=== PATIENT | female | born 1980 | race Native Hawaiian/Other Pacific Islander ===

== ENCOUNTER 2018-05-01 08:00 | Outpatient (CLI) | payer MEDICAID, OTHER ==
[2018-05-01 12:57] LABS: BASOPHILS % (AUTO) 0.3 %; EOSINOPHILS % (AUTO) 0.6 %; LYMPHOCYTES # (AUTO) 1.9 10^3/uL (1.5-3.5); LYMPHOCYTES % (AUTO) 26.1 %; MEAN CORPUSCULAR HEMOGLOBIN 32.8 pg (27.0-31.0); MEAN CORPUSCULAR HGB CONC 32.9 g/dL (32.0-36.0); MEAN CORPUSCULAR VOLUME 99.6 fL (81.0-99.0); MEAN PLATELET VOLUME 9.6 fL (7.9-10.8); MONOCYTES # (AUTO) 0.5 10^3/uL (0.0-1.0); NEUTROPHILS # (AUTO) 4.9 10^3/uL (1.5-6.6); PLT - PLATELET COUNT 221 10^3/uL (130-450); RED BLOOD COUNT 3.97 10^6/uL (4.20-5.40); RED CELL DISTRIBUTION WIDTH 13.4 % (12.0-15.0); WHITE BLOOD COUNT 7.4 x10^3/uL (4.8-10.8)
[2018-05-01 13:18] LABS: HB2 TOTAL 13.6 g/dL; HEMOGLOBIN A1C 0.44 g/dL; HEMOGLOBIN A1C % 5.1 % (4.6-6.2)
[2018-05-01 13:28] LABS: ALBUMIN 3.6 g/dL (3.2-5.5); ALKALINE PHOSPHATASE 67 IU/L (42-121); ALT ALANINE AMINOTRANSFERASE 16 IU/L (10-60); AST ASPARTATE AMINOTRANSFERASE 18 IU/L (10-42); BILIRUBIN,TOTAL 0.5 mg/dL (0.2-1.0); BUN - BLOOD UREA NITROGEN 8 mg/dL (6-20); CALCIUM 8.8 mg/dL (8.5-10.3); CARBON DIOXIDE - CO2 26 mmol/L (21-32); CHLORIDE 106 mmol/L (101-111); CHOL/HDL RATIO 2.9 (<4.4); CHOLESTEROL 143 mg/dL; CREATININE 0.7 mg/dL (0.4-1.0); GFR - MDRD 95 (>89); GLUCOSE 95 mg/dL (70-100); HDL CHOLESTEROL 50 mg/dL; LDL CHOLESTEROL,CALCULATED 73 mg/dL; LDL/HDL RATIO 1.5 (<4.4); SODIUM 138 mmol/L (135-145); TOTAL PROTEIN 7.3 g/dL (6.7-8.2); VLDL CHOLESTEROL 20 mg/dL
[2018-05-01 13:32] LABS: THYROID STIMULATING HORMONE 3.64 uIU/mL (0.34-5.60)
== END 2018-05-01 08:01 ==
LOC: LAB.WCP 08:00
PROVIDERS: ATTEND Physician Assistant
DX: Z00.00 Encounter for general adult medical examination without abnormal findings (principal); R53.83 Other fatigue
CPT/HCPCS: 36415; 80053; 80061; 82306; 82607; 83036; 83721; 84443; 85025

== ENCOUNTER 2018-08-21 11:30 | Emergency (ER) | payer MEDICAID ==
[2018-08-21] MEDS ORDERED: MAG HYDROX/AL HYDROX/SIMETH 30 ML UDC PO STA (13:39)
[2018-08-21] MEDS ORDERED: LIDOCAINE VISCOUS 2% 15 ML UDC MM STA (13:39)
--- NOTE | 2018-08-21 13:41 | ED Physician Documentation ---
PD HPI ABD PAIN - Stated complaint Stated Complaint: UPPER AB PX/VOMITING - Chief complaint Chief Complaint: Abd Pain - History obtained from History obtained from: Patient - History of Present Illness Timing - onset: Today (38-year-old woman with gradual onset and now severe left upper quadrant and left abdominal pain today associated with with vomiting. No changes in bowel movements or diarrhea. She is never had this before. She has had a history of a section but no other abdominal surgeries.) Review of Systems Ten Systems: 10 systems reviewed and negative Constitutional: denies: Fever, Chills Throat: denies: Dental pain / toothache, Sore throat Cardiac: denies: Chest pain / pressure, Palpitations Respiratory: denies: Dyspnea, Cough PD PAST MEDICAL HISTORY - Present Medications Home Medications: Ambulatory Orders Medication Instructions Recorded Confirmed Ciprofloxacin HCl [Cipro] 500 mg PO BID #14 tablet 08/21/18 Ibuprofen [Motrin] 800 mg PO Q8H PRN #30 tablet 08/21/18 Metronidazole [Flagyl] 500 mg PO BID #14 tablet 08/21/18 - Allergies Allergies/Adverse Reactions: Allergies Allergy/AdvReac Type Severity Reaction Status Date / Time No Known Drug Allergies Allergy Verified 02/12/15 06:16 - Social History Smoking Status: Never smoker PD ED PE NORMAL - Vitals Vital signs reviewed: Yes - General General: Alert and oriented X 3, Other (She appears uncomfortable) - HEENT HEENT: Atraumatic, PERRL, EOMI - Neck Neck: Supple, no meningeal sign, No bony TTP - Cardiac Cardiac: RRR, No murmur - Respiratory Respiratory: No respiratory distress, Clear bilaterally - Abdomen Abdomen: Normal bowel sounds, Soft, Other (Mild left upper quadrant and epigastric and left-sided abdominal tenderness without surgical signs) - Back Back: No CVA TTP, No spinal TTP - Derm Derm: Normal color, Warm and dry - Extremities Extremities: No deformity, No tenderness to palpate - Neuro Neuro: Alert and oriented X 3, Normal speech - Psych Psych: Normal mood, Normal affect Results - Vitals Vitals: Vital Signs - 24 hr 08/21/18 08/21/18 11:44 16:15 Temperature 36.7 C Heart Rate 68 51 L Respiratory 20 18 Rate Blood Pressure 118/71 111/83 H O2 Saturation 100 95 Oxygen O2 Source Room air - Labs Labs: Laboratory Tests 08/21/18 08/21/18 08/21/18 12:58 14:35 14:35 WBC RBC Hgb Hct MCV MCH MCHC RDW Plt Count MPV Neut # (Auto) Lymph # (Auto) [place] # (Auto) Eos # (Auto) Baso # (Auto) Absolute Nucleated RBC Nucleated RBC % Sodium 135 Potassium 4.0 Chloride 102 Carbon Dioxide 22 Anion Gap 11.0 BUN 10 Creatinine 0.5 Estimated GFR (MDRD) 140 Glucose 118 H Calcium 9.4 Total Bilirubin 0.8 AST 22 ALT 19 Alkaline Phosphatase 81 Total Protein 7.7 Albumin 4.2 Globulin 3.5 Albumin/Globulin Ratio 1.2 Lipase 23 Urine Color YELLOW Urine Clarity CLEAR Urine pH 8.5 H Ur Specific [place] 1.020 1.020 Urine Protein NEGATIVE Urine Glucose (UA) NEGATIVE Urine Ketones >=80 H Urine Occult Blood TRACE-LYSE Urine Nitrite NEGATIVE Urine Bilirubin NEGATIVE Urine Urobilinogen 0.2 (NORMAL) Ur Leukocyte Esterase NEGATIVE Ur Microscopic Review NOT INDICATED Urine Culture Comments NOT INDICATED Urine HCG, Qual NEGATIVE 08/21/18 14:57 WBC 17.0 H RBC 4.25 Hgb 13.7 Hct 41.6 MCV 98.0 MCH 32.2 H MCHC 32.9 RDW 13.3 Plt Count 260 MPV 8.6 Neut # (Auto) 15.4 H Lymph # (Auto) 0.9 L [place] # (Auto) 0.6 Eos # (Auto) 0.0 Baso # (Auto) 0.1 Absolute Nucleated RBC 0.00 Nucleated RBC % 0.0 Sodium Potassium Chloride Carbon Dioxide Anion Gap BUN Creatinine Estimated GFR (MDRD) Glucose Calcium Total Bilirubin AST ALT Alkaline Phosphatase Total Protein Albumin Globulin Albumin/Globulin Ratio Lipase Urine Color Urine Clarity Urine pH Ur Specific [place] Urine Protein Urine Glucose (UA) Urine Ketones Urine Occult Blood Urine Nitrite Urine Bilirubin Urine Urobilinogen Ur Leukocyte Esterase Ur Microscopic Review Urine Culture Comments Urine HCG, Qual PD MEDICAL DECISION MAKING - ED course ED course: 38-year-old woman with epigastric and left upper quadrant abdominal pain most consistent with gastritis but had minimal to no relief with a GI cocktail. And given the white count to CT was done, verbal report from Dr. Gauthier showing potential mild left-sided colitis and which is treated with Cipro and Flagyl. Departure - Departure Disposition: 01 Home, Self Care Clinical Impression: Abdominal pain, Colitis Condition: Good Record reviewed to determine appropriate education?: Yes Instructions: ED Abdominal Pain Unkn Cause Prescriptions: Ciprofloxacin HCl [Cipro] 500 mg PO BID #14 tablet Ibuprofen [Motrin] 800 mg PO Q8H PRN #30 tablet PRN Reason: PAIN &/OR FEVER Metronidazole [Flagyl] 500 mg PO BID #14 tablet Comments: Call your doctor to arrange a follow-up appointment, make the next available appointment. In the interim, return anytime if worse or if new symptoms develop. Forms: Activity restrictions Discharge Date/Time: 08/21/18 16:21
[2018-08-21 14:00] LABS: ALBUMIN 4.2 g/dL (3.2-5.5); ALBUMIN/GLOBULIN RATIO 1.2 (1.0-2.2); BILIRUBIN,TOTAL 0.8 mg/dL (0.2-1.0); CALCIUM 9.4 mg/dL (8.5-10.3); CREATININE 0.5 mg/dL (0.4-1.0); TOTAL PROTEIN 7.7 g/dL (6.7-8.2)
[2018-08-21] MEDS ORDERED: KETOROLAC 60 MG/2 ML VIAL IVP STA (14:25)
[2018-08-21 14:54] LABS: BILIRUBIN,URINE NEGATIVE (NEGATIVE); GLUCOSE, URINE (UA) NEGATIVE (NEGATIVE); KETONES,URINE (UA) >=80 mg/dL (NEGATIVE); LEUKOCYTE ESTERASE, URINE NEGATIVE (NEGATIVE); NITRITE,URINE NEGATIVE (NEGATIVE); OCCULT BLOOD,URINE TRACE-LYSE (NEGATIVE); PH,URINE 8.5 PH (5.0-7.5); PROTEIN,URINE NEGATIVE (NEGATIVE); UROBILINOGEN,URINE 0.2 (NORMAL) E.U./dL (NORMAL)
[2018-08-21 14:57] LABS: CLARITY,URINE CLEAR (CLEAR)
[2018-08-21 14:58] LABS: HCG UR QUAL NEGATIVE
[2018-08-21 15:01] LABS: BASOPHILS # (AUTO) 0.1 10^3/uL (0.0-0.1); BASOPHILS % (AUTO) 0.4 %; HGB - HEMOGLOBIN 13.7 g/dL (12.0-16.0); LYMPHOCYTES # (AUTO) 0.9 10^3/uL (1.5-3.5); LYMPHOCYTES % (AUTO) 5.3 %; MEAN CORPUSCULAR HEMOGLOBIN 32.2 pg (27.0-31.0); MEAN CORPUSCULAR HGB CONC 32.9 g/dL (32.0-36.0); MEAN PLATELET VOLUME 8.6 fL (7.9-10.8); MONOCYTES # (AUTO) 0.6 10^3/uL (0.0-1.0); MONOCYTES % (AUTO) 3.7 %; NEUTROPHILS # (AUTO) 15.4 10^3/uL (1.5-6.6); NEUTROPHILS % (AUTO) 90.6 %; PLT - PLATELET COUNT 260 10^3/uL (130-450); RED BLOOD COUNT 4.25 10^6/uL (4.20-5.40); RED CELL DISTRIBUTION WIDTH 13.3 % (12.0-15.0)
[2018-08-21] MEDS ORDERED: IOPAMIDOL-300 100 ML VIAL ONE (15:19)
[2018-08-21] MEDS ORDERED: IOPAMIDOL-300 100 ML VIAL IVP ONE (15:49)
[2018-08-21] MEDS ORDERED: metroNIDAZOLE 250 MG TABLET PO STA (16:03)
[2018-08-21] MEDS ORDERED: CIPROFLOXACIN 250 MG TABLET PO STA (16:03)
--- NOTE | 2018-08-21 16:04 | CT Report ---
Reason: IV only, upper abd pain Procedure Date: 08/21/2018 Accession Number: [id number] / [id number] Procedure: CT - Abdomen/Pelvis W/ CPT Code: FULL RESULT: EXAM: CT ABDOMEN AND PELVIS EXAM DATE: 08/21/2018 03:35 PM. CLINICAL HISTORY: IV only, upper abdominal pain. COMPARISONS: None. TECHNIQUE: Routine helical CT imaging was performed through the abdomen and pelvis. IV contrast: 100 mL Isovue-300. Enteric contrast: No. Reconstructions: Coronal and sagittal. In accordance with CT protocol optimization, one or more of the following dose reduction techniques were utilized for this exam: automated exposure control, adjustment of mA and/or KV based on patient size, or use of iterative reconstructive technique. FINDINGS: Lung Bases: Unremarkable. Liver: Normal. No masses. Gallbladder/Bile Ducts: Unremarkable. Spleen: Normal. Pancreas: Normal. Adrenal Glands: Normal. Kidneys: Normal. No masses or hydronephrosis. Peritoneal Cavity/Bowel: The colon is collapsed which can be seen with high output, diarrhea. There is a mild prominence of the vascular arcade of the transverse colon and bowel in the region of the splenic flexure. No free fluid, free air or adenopathy. No masses or acute inflammatory process. The appendix is well visualized and normal. Pelvic Organs: Normal. The bladder and visualized pelvic organs are within normal limits. Vasculature: No aneurysms or other significant abnormality. Bones: No significant abnormality. Other: IUD is noted, intrauterine. IMPRESSION: Questionable mild radiographic signs compatible with enteritis/colitis. RADIA CRITICAL RESULT: The findings were discussed with Dr. Gaxiola on 08/21/2018 at 4 PM.
[2018-08-21 16:17] VITALS: BP 111/83
== END 2018-08-21 16:21 | disposition home or self-care (01) ==
LOC: ED 11:30
DX: K52.9 Noninfective gastroenteritis and colitis, unspecified (principal)
CPT/HCPCS: 36415; 74177; 80053; 81003; 81025; 83690; 85025; 96374; 99283; A9270; Q9967; 81001; 87086

== ENCOUNTER 2019-03-24 06:29 | Outpatient (CLI) | payer MEDICAID ==
[2019-03-24] MEDS ORDERED: IOVERSOL 320 100 ML VIAL IVP ONE ×2 (06:44→08:12)
[2019-03-24] MEDS ORDERED: IOVERSOL 320 50 ML VIAL ONE (06:45)
[2019-03-24] MEDS ORDERED: IOVERSOL 320 50 ML VIAL PO ONE (08:12)
--- NOTE | 2019-03-24 18:14 | CT Report ---
Reason: BLOODY STOOLS,ABDOMINAL OR PELVIS SWELLING Procedure Date: 03/24/2019 Accession Number: [id number] / [id number] Procedure: CT - Abdomen/Pelvis W CPT Code: FULL RESULT: EXAM: CT ABDOMEN AND PELVIS EXAM DATE: 03/24/2019 08:11 AM. CLINICAL HISTORY: BLOODY STOOLS,ABDOMINAL OR PELVIS SWELLING. COMPARISONS: ABDOMEN/PELVIS W/ 08/21/2018 3:32 PM. TECHNIQUE: Routine helical CT imaging was performed through the abdomen and pelvis. IV contrast: 90 cc Optiray 320. Enteric contrast: Yes. Reconstructions: Coronal and sagittal. In accordance with CT protocol optimization, one or more of the following dose reduction techniques were utilized for this exam: automated exposure control, adjustment of mA and/or KV based on patient size, or use of iterative reconstructive technique. FINDINGS: Lung Bases: Unremarkable. Liver: Normal. No masses. Gallbladder/Bile Ducts: No gallstones. Common bile duct measures up to 8 mm which is dilated but no intrahepatic ductal dilatation. Spleen: Normal. Pancreas: Normal. Adrenal Glands: Normal. Kidneys: Normal. No masses or hydronephrosis. Peritoneal Cavity/Bowel: Small fat-containing umbilical hernia Subcentimeter retroperitoneal lymph nodes.. No free fluid, free air no masses or acute inflammatory process. The appendix is well visualized and normal. Pelvic Organs: IUD in uterus. Possible fundal fibroid. Bladder unremarkable. Vasculature: No aneurysms or other significant abnormality. Prominent left ovarian vein variant Bones: No significant abnormality. Other: None. IMPRESSION: 1. Mildly prominent common bile duct. No intra-periductal dilatation. No gallstones by CT. 2. Possible fundal fibroid RADIA
== END 2019-03-24 06:30 | disposition home or self-care (01) ==
LOC: DI 06:29
PROVIDERS: ATTEND Family Medicine
DX: K92.1 Melena (principal); R19.04 Left lower quadrant abdominal swelling, mass and lump
CPT/HCPCS: 74177; Q9967

== ENCOUNTER 2019-04-02 11:16 | Outpatient (CLI) | payer MEDICAID ==
[2019-04-02 18:47] LABS: BASOPHILS % (AUTO) 0.4 %; EOSINOPHILS % (AUTO) 0.3 %; HGB - HEMOGLOBIN 12.5 g/dL (12.0-16.0); LYMPHOCYTES # (AUTO) 1.7 10^3/uL (1.5-3.5); LYMPHOCYTES % (AUTO) 23.2 %; MEAN CORPUSCULAR HEMOGLOBIN 29.8 pg (27.0-31.0); MEAN CORPUSCULAR HGB CONC 31.3 g/dL (32.0-36.0); MEAN CORPUSCULAR VOLUME 95.1 fL (81.0-99.0); MEAN PLATELET VOLUME 9.8 fL (7.9-10.8); MONOCYTES # (AUTO) 0.5 10^3/uL (0.0-1.0); MONOCYTES % (AUTO) 6.2 %; NEUTROPHILS # (AUTO) 5.2 10^3/uL (1.5-6.6); NEUTROPHILS % (AUTO) 69.9 %; PLT - PLATELET COUNT 287 10^3/uL (130-450); RED BLOOD COUNT 4.19 10^6/uL (4.20-5.40); RED CELL DISTRIBUTION WIDTH 14.8 % (12.0-15.0); WHITE BLOOD COUNT 7.4 x10^3/uL (4.8-10.8)
[2019-04-02 19:16] LABS: BILIRUBIN,TOTAL 0.6 mg/dL (0.2-1.0); CALCIUM 9.1 mg/dL (8.5-10.3); CREATININE 0.6 mg/dL (0.4-1.0)
[2019-04-02 19:53] LABS: HB2 TOTAL 13.3 g/dL; HEMOGLOBIN A1C 0.48 g/dL; HEMOGLOBIN A1C % 5.5 % (4.6-6.2)
== END 2019-04-02 11:17 | disposition home or self-care (01) ==
LOC: LAB.WCP 11:16
PROVIDERS: ATTEND Physician Assistant
DX: R19.7 Diarrhea, unspecified (principal); Z83.3 Family history of diabetes mellitus; K92.1 Melena; K83.9 Disease of biliary tract, unspecified
CPT/HCPCS: 36415; 80053; 82977; 83036; 83540; 84466; 85025

== ENCOUNTER 2019-04-13 09:00 | Outpatient (CLI) | payer MEDICAID ==
--- NOTE | 2019-04-13 15:38 | Mammography Report ---
Reason: RT BREAST PAIN Procedure Date: 04/13/2019 Accession Number: [id number] / [id number] Procedure: HUMBLE - Diagnostic Dig Bilat CPT Code: FULL RESULT: EXAM: Diagnostic Dig Bilat DATE: 04/13/2019 10:28 AM CLINICAL HISTORY: Diagnostic examination. Right breast pain. TECHNIQUE: (B) - Bilateral CC and MLO views were obtained. Right ML view is obtained. Focused right breast ultrasound is performed. COMPARISON: Baseline mammogram. PARENCHYMAL PATTERN: (A) - The breast(s) demonstrate(s) scattered fibroglandular densities. FINDINGS: Focused right breast ultrasound demonstrates normal breast tissue in the right breast at the 5:00 position as indicated by the patient. There are no suspicious masses, calcifications, or areas of distortion. IMPRESSION: Negative examination. BI-RADS category 1. RECOMMENDATION: (ANNUAL) - Recommend routine annual screening mammography. To start at the age of 40. BI-RADS CATEGORY: (1) - Negative. STANDARD QUALIFYING STATEMENTS: 1. This examination was not reviewed with the aid of Computer-Aided Detection (CAD). 2. A negative or benign imaging report should not preclude biopsy if clinically suspicious findings are present. 3. Dense breasts may obscure an underlying neoplasm. 4. This examination was reviewed without the aid of 3D breast imaging (tomosynthesis).
== END 2019-04-13 09:01 | disposition home or self-care (01) ==
LOC: DI 09:00
PROVIDERS: ATTEND Physician Assistant
DX: N64.4 Mastodynia (principal)
CPT/HCPCS: 76642; 77066

== ENCOUNTER 2019-04-13 09:00 | Outpatient (CLI) | payer MEDICAID ==
--- NOTE | 2019-04-13 14:17 | Ultrasound Report ---
Reason: DILATED BILE DUCT Procedure Date: 04/13/2019 Accession Number: [id number] / [id number] Procedure: US - Abdomen Complete CPT Code: FULL RESULT: EXAM: ABDOMEN ULTRASOUND EXAM DATE: 04/13/2019 11:14 AM. CLINICAL HISTORY: Dilated bile duct. COMPARISON: ABDOMEN/PELVIS W/ 03/24/2019 8:01 AM. TECHNIQUE: Real-time scanning was performed with static images obtained. FINDINGS: Liver: Minimal increased echogenicity. The liver measures at least 14.1 cm. Main portal vein flow: Hepatopetal. Gallbladder: Gallbladder contains stones which are not demonstrated to be mobile and demonstrates marked gallbladder wall thickening of up to 0.8 cm with discontinuity of the internal mucosal signature and increased echogenicity of surrounding tissue. No tenderness is elicited over the gallbladder on examination. Biliary System: Common bile duct measures at the dary hepatis up to 4 mm and up to 9 mm distally, greater than expected. No intrahepatic ductal dilation. Pancreas: Visualized portion is unremarkable. Kidneys: Right: 9.9 cm longitudinally. Normal. No contour-deforming mass, stones, or hydronephrosis. Left: 11.4 cm longitudinally. Normal. No contour-deforming mass, stones, or hydronephrosis. Spleen: 8.8 cm. Normal in size and echotexture. Aorta and Inferior Vena Cava: Unremarkable. Other: None. IMPRESSION: Cholelithiasis with markedly abnormal appearance of the gallbladder wall is concerning for cholecystitis even in absence of gallbladder tenderness. Dilation of the distal common bile duct. RADIA The call report notification system was initiated by Dr. Ken Gauthier at 02:12 PM on 04/13/2019. ADDENDUM: 04/13/19 14:47 hrs. The above call report findings were discussed with Dr. belcher by Dr. Ken Gauthier at 02:51 PM on 04/13/2019.
== END 2019-04-13 09:01 | disposition home or self-care (01) ==
LOC: DI 09:00
PROVIDERS: ATTEND Physician Assistant
DX: K83.8 Other specified diseases of biliary tract (principal); K80.20 Calculus of gallbladder without cholecystitis without obstruction
CPT/HCPCS: 76700

== ENCOUNTER 2019-04-13 16:12 | Emergency (ER) | payer MEDICAID ==
[2019-04-13 16:52] LABS: BASOPHILS % (AUTO) 0.4 %; EOSINOPHILS % (AUTO) 0.6 %; HGB - HEMOGLOBIN 11.2 g/dL (12.0-16.0); LYMPHOCYTES # (AUTO) 2.1 10^3/uL (1.5-3.5); LYMPHOCYTES % (AUTO) 30.3 %; MEAN CORPUSCULAR HEMOGLOBIN 29.5 pg (27.0-31.0); MEAN CORPUSCULAR HGB CONC 30.2 g/dL (32.0-36.0); MEAN CORPUSCULAR VOLUME 97.6 fL (81.0-99.0); MEAN PLATELET VOLUME 10.7 fL (7.9-10.8); MONOCYTES # (AUTO) 0.5 10^3/uL (0.0-1.0); MONOCYTES % (AUTO) 7.1 %; NEUTROPHILS # (AUTO) 4.3 10^3/uL (1.5-6.6); NEUTROPHILS % (AUTO) 61.3 %; PLT - PLATELET COUNT 276 10^3/uL (130-450); RED CELL DISTRIBUTION WIDTH 13.9 % (12.0-15.0)
[2019-04-13] MEDS ORDERED: MORPHINE 2 MG/ML CARPUJECT IVP STA ×2 (16:58→18:37)
--- NOTE | 2019-04-13 17:01 | ED Physician Documentation ---
PD HPI ABD PAIN - Stated complaint Stated Complaint: ABD PX - Chief complaint Chief Complaint: Abd Pain - History obtained from History obtained from: Patient - History of Present Illness Timing - onset: Other (This is a previously healthy 38-year-old woman whose had 2 C-sections in the past. For the last 2 months she had initially intermittent and now more constant epigastric abdominal pain. It radiates to the left upper quadrant and is worse after eating. But a month ago it became constant and it has been associated with on and off diarrhea. At some point about a month ago she had a very small blood clot in her stool. Subsequently she had lab work and a CT done. Lab work was negative with negative Hemoccult testing. CT was notable for a mildly dilated common bile duct. Subsequently she was referred for an ultrasound which was done today concerning for cholecystitis. She has been in constant abdominal pain for the last month but again it is in the epigastric and left upper quadrant. Not the right upper quadrant.) Review of Systems Ten Systems: 10 systems reviewed and negative Constitutional: denies: Fever, Chills Nose: reports: Reviewed and negative Throat: reports: Reviewed and negative Cardiac: reports: Reviewed and negative Respiratory: reports: Reviewed and negative GI: reports: Abdominal Pain, Nausea, Diarrhea. denies: Vomiting PD PAST MEDICAL HISTORY - Past Medical History Cardiovascular: None Respiratory: None Neuro: None Endocrine/Autoimmune: None GI: None RD MANAGER: None : None HEENT: None Psych: None Musculoskeletal: None Derm: None - Past Surgical History Past Surgical History: Yes /RD MANAGER: section - Present Medications Home Medications: Ambulatory Orders Medication Instructions Recorded Confirmed Dicyclomine [Bentyl] 10 mg PO QID 04/13/19 04/13/19 - Allergies Allergies/Adverse Reactions: Allergies Allergy/AdvReac Type Severity Reaction Status Date / Time No Known Drug Allergies Allergy Verified 02/12/15 06:16 - Social History Does the pt smoke?: No Smoking Status: Never smoker Does the pt drink ETOH?: No Does the pt have substance abuse?: No - Immunizations Immunizations are current?: Yes - POLST Patient has POLST: No PD ED PE NORMAL - Vitals Vital signs reviewed: Yes - General General: Alert and oriented X 3, No acute distress - HEENT HEENT: PERRL, EOMI - Neck Neck: Supple, no meningeal sign, No bony TTP - Cardiac Cardiac: RRR, No murmur - Respiratory Respiratory: No respiratory distress, Clear bilaterally - Abdomen Abdomen: Normal bowel sounds, Soft, Other (Minimal epigastric and left upper quadrant tenderness without surgical signs) - Back Back: No CVA TTP, No spinal TTP - Derm Derm: Normal color, Warm and dry - Extremities Extremities: No edema, No calf tenderness / cord - Neuro Neuro: Alert and oriented X 3, Normal speech Results - Vitals Vitals: Vital Signs - 24 hr 04/13/19 04/13/19 04/13/19 16:24 18:10 20:11 Temperature 37 C 36.5 C Heart Rate 80 61 82 Respiratory 20 18 18 Rate Blood Pressure 128/86 H 122/78 102/67 O2 Saturation 100 100 100 Oxygen O2 Source Room air - Labs Labs: Laboratory Tests 04/13/19 04/13/19 04/13/19 16:47 16:47 17:37 WBC 7.0 RBC 3.80 L Hgb 11.2 L Hct 37.1 MCV 97.6 MCH 29.5 MCHC 30.2 L RDW 13.9 Plt Count 276 MPV 10.7 Neut # (Auto) 4.3 Lymph # (Auto) 2.1 [place] # (Auto) 0.5 Eos # (Auto) 0.0 Baso # (Auto) 0.0 Absolute Nucleated RBC 0.00 Nucleated RBC % 0.0 Sodium 140 Potassium 3.3 L Chloride 105 Carbon Dioxide 25 Anion Gap 10.0 BUN 11 Creatinine 0.8 Estimated GFR (MDRD) 81 L Glucose 86 Calcium 9.1 Total Bilirubin 0.4 AST 18 ALT 11 Alkaline Phosphatase 73 Total Protein 7.6 Albumin 4.1 Globulin 3.5 Albumin/Globulin Ratio 1.2 Lipase 28 Urine Color Urine Clarity Urine pH Ur Specific [place] <=1.005 Urine Protein Urine Glucose (UA) Urine Ketones Urine Occult Blood Urine Nitrite Urine Bilirubin Urine Urobilinogen Ur Leukocyte Esterase Urine RBC Urine WBC Ur Squamous Epith Cells Urine Bacteria Ur Microscopic Review Urine Culture Comments Urine HCG, Qual NEGATIVE 04/13/19 17:37 WBC RBC Hgb Hct MCV MCH MCHC RDW Plt Count MPV Neut # (Auto) Lymph # (Auto) [place] # (Auto) Eos # (Auto) Baso # (Auto) Absolute Nucleated RBC Nucleated RBC % Sodium Potassium Chloride Carbon Dioxide Anion Gap BUN Creatinine Estimated GFR (MDRD) Glucose Calcium Total Bilirubin AST ALT Alkaline Phosphatase Total Protein Albumin Globulin Albumin/Globulin Ratio Lipase Urine Color YELLOW Urine Clarity CLEAR Urine pH 6.5 Ur Specific [place] <=1.005 Urine Protein NEGATIVE Urine Glucose (UA) NEGATIVE Urine Ketones NEGATIVE Urine Occult Blood TRACE-LYSE Urine Nitrite NEGATIVE Urine Bilirubin NEGATIVE Urine Urobilinogen 0.2 (NORMAL) Ur Leukocyte Esterase TRACE H Urine RBC 0-5 Urine WBC 11-25 H Ur Squamous Epith Cells MANY Squamous H Urine Bacteria Many H Ur Microscopic Review INDICATED Urine Culture Comments NOT INDICATED Urine HCG, Qual - Rads (name of study) RUQ sono Radiology: EMP read contemporaneously (Cholelithiasis with markedly abnormal appearance of the gallbladder wall concerning for cholecystitis with a dilated common bile duct, 4 mm proximally and 9 mm distally.) PD MEDICAL DECISION MAKING - ED course ED course: This is a 38-year-old woman with subacute but worsening abdominal pain requiring multiple doses of narcotics here. Had an ultrasound earlier in the day showing cholelithiasis, but her pain is central to left upper quadrant and the dilation of the common bile duct is concerning. She was seen here by the surgeon, Dr. Landry who felt that she likely had an impacted common bile duct stone and would need ERCP prior to cholecystectomy. He is happy to do the cholecystectomy after an ERCP if the accepting facility Wishes to send her back. We also entertained the possibility of keeping her here for MRCP but after discussion with the warehouse loader there is no MRI available over the weekend here. Call was placed to [facility] for potential transfer at 7:42 PM. I spoke with Dr. Encarnacion, the hospitalist there. They only have one GI that does ERCP and as such declined to accept the pt as he is not labor economics teacher this weekend. Called Prov for xfer at 2014 However subsequent to that [facility] called back and told us that they would be able to do ERCP over the weekend and Dr. Encarnacion is accepting. Departure - Departure Disposition: 02 Transfer Acute Care Hosp Clinical Impression: Choledocholithiasis with acute cholecystitis Condition: Serious
[2019-04-13 17:05] LABS: ALBUMIN 4.1 g/dL (3.2-5.5); ALBUMIN/GLOBULIN RATIO 1.2 (1.0-2.2); BILIRUBIN,TOTAL 0.4 mg/dL (0.2-1.0); CALCIUM 9.1 mg/dL (8.5-10.3); CREATININE 0.8 mg/dL (0.4-1.0); TOTAL PROTEIN 7.6 g/dL (6.7-8.2)
[2019-04-13 18:02] LABS: BILIRUBIN,URINE NEGATIVE (NEGATIVE); GLUCOSE, URINE (UA) NEGATIVE (NEGATIVE); KETONES,URINE (UA) NEGATIVE (NEGATIVE); LEUKOCYTE ESTERASE, URINE TRACE (NEGATIVE); NITRITE,URINE NEGATIVE (NEGATIVE); OCCULT BLOOD,URINE TRACE-LYSE (NEGATIVE); PH,URINE 6.5 PH (5.0-7.5); PROTEIN,URINE NEGATIVE (NEGATIVE); UROBILINOGEN,URINE 0.2 (NORMAL) E.U./dL (NORMAL)
[2019-04-13 18:09] LABS: CLARITY,URINE CLEAR (CLEAR)
[2019-04-13 18:10] LABS: HCG UR QUAL NEGATIVE
[2019-04-13 18:13] LABS: RBC,URINE 0-5 /HPF (0-5)
[2019-04-13 18:14] LABS: BACTERIA,URINE Many /HPF (None Seen); SQUAMOUS EPITHELIAL CELL,UR MANY Squamous (<= Few)
[2019-04-13] MEDS ORDERED: ONDANSETRON 4 MG/2 ML VIAL IVP STA ×2 (18:37→21:03)
[2019-04-13] MEDS ORDERED: HYDROmorphone 1 MG/ML CARPUJECT IVP STA ×2 (18:59→21:03)
[2019-04-13] MEDS ORDERED: AMPICILLIN/SULBACTAM 3 GM in SODIUM CHLORIDE 0.9% MINIBAG 100 ML IV STA (19:43)
[2019-04-13 21:18] VITALS: BP 101/67
--- NOTE | 2019-04-13 23:45 | CONSULTATION NOTE ---
Referring Provider Name of Referring Provider:: Drs. Quentin Stubbs and Joya Schneider Consult Date: 04/13/19 Chief Complaint - Chief Complaint Chief Complaint: Severe unremitting epigastric pain History of Present Illness - Admitted From Admitted From:: Not admitted - evaluated in ED - History Obtained From Records Reviewed: Yes History obtained from: Primarily chart and Drs. Stubbs and Wyatt due to patient's discomfort Exam Limitations: Patient's pain - History of Present Illness HPI Comment/Other: This is a 38-year-old female patient who I was called by Dr. Schneider earlier today regarding the patient's abdominal pain and ultrasound findings. After our discussion the patient was sent to the emergency department for evaluation and I was subsequently called by Dr. Post. The patient was evaluated in bed 2 at [facility]'s emergency department and our discussion was significantly limited by the patient's discomfort. The patient was in a position and clearly in a great deal of pain. Review of the patient's chart indicates that the symptoms (certainly not to this degree) have been present for the better part of 2 months. They have been associated with nausea and vomiting. The pain is described as extraordinarily sharp pain radiating through to her back. Approximately 1 month ago the pain went from episodic to constant and is primarily located in the epigastrium and left upper quadrant. This is not a typo it is not in the right upper quadrant. This somewhat confused the work-up and a CT scan did show a dilated common bile duct but when the patient had some blood per rectum and diarrhea she was referred to Dr. Mae for a colonoscopy (due to see him in May 04 I believe). History - Past Medical History Cardiovascular: reports: None Respiratory: reports: None Neuro: reports: None Endocrine/Autoimmune: reports: None GI: reports: None SPOTTER: reports: None : reports: None HEENT: reports: None Psych: reports: None Musculoskeletal: reports: None Derm: reports: None MRSA Hx?: No - Past Surgical History /SPOTTER: reports: section - POLST Patient has POLST: No Meds/Allgy - Home Medications Home Medications: Ambulatory Orders Medication Instructions Recorded Confirmed Dicyclomine [Bentyl] 10 mg PO QID 04/13/19 04/13/19 - Allergies Allergies/Adverse Reactions: Allergies Allergy/AdvReac Type Severity Reaction Status Date / Time No Known Drug Allergies Allergy Verified 02/12/15 06:16 Review of Systems - Gastrointestinal Gastrointestinal: reports: Abdominal pain, Diarrhea, Change in bowel habits, Rectal bleeding, Nausea, Vomiting Exam - Vital Signs Reviewed Vital Signs: Yes Vital Signs: Vital Signs x48h Temp Pulse Resp BP Pulse Ox 04/13/19 21:17 86 20 101/67 99 04/13/19 20:11 36.5 C 82 18 102/67 100 04/13/19 18:10 61 18 122/78 100 04/13/19 16:24 37 C 80 20 128/86 H 100 - Physical Exam General Appearance: positive: Severe distress Eyes Bilateral: positive: No lid inflammation, Conjunctivae nml, No scleral icterus ENT: positive: Dry mucous membranes Neck: positive: Trachea midline Respiratory: positive: Chest non-tender, No respiratory distress Cardiovascular: positive: Tachycardia (Likely secondary to pain.) Abdomen: positive: Tenderness (In the epigastrium.) Extremities: positive: Non-tender Neurologic/Psychiatric: positive: Oriented x3 Conclusion/Plan - Diagnosis Diagnosis: With her severe symptoms and her dilated common bile duct on most recent studies this is consistent with choledocholithiasis. Additionally she clearly has cholelithiasis and possibly even some cholecystitis. - Plan Plan: The most efficient and the best way to handle this patient's surgical issue would be to first obtain an ERCP and follow this with a laparoscopic cholecystectomy. This would clear the common bile duct and then ensure that no additional stones would block the common bile duct. If I simply were to take out her gallbladder now it has the high likelihood of not taking care of her pain as her pain is likely related to the obstruction of the common bile duct. Additionally, if the common bile duct cannot be cleared endoscopically then another surgery may in fact be indicated. Hence, ERCP followed by laparoscopic cholecystectomy. An MRCP can be done but this has no therapeutic advantage. Additionally, MRCP or any MRI is unavailable to us this weekend in our hospital. The best surgical treatment option would be for the patient to be transferred to a Medical Center where ERCP can be obtained and then follow this with a laparoscopic cholecystectomy. If he Medical Center is too busy to accept the patient then as long as they perform the ERCP I be more than happy to admit her back to our hospital and perform the laparoscopic cholecystectomy. 45 minutes of [id number] time spent with the patient, the majority of which was spent in discussion, coordination of care, and completion of the requisite paperwork [place] disclaimer: This document was created in part using voice recognition technology. Because of the inherent limitations of the system ([employer]'s [employer] user manual states that the licensee understands that speech recognition is a statistical process and that recognition errors are inherent in the process), occasional jeff e sounding word substitutions and grammatical errors do occur and persist despite proofreading. Please read this document for context. - Lab Results Lab results reviewed: Yes Fish Bones: 04/13/19 16:47 04/13/19 16:47 - Diagnostic Imaging Results Diagnostic Imaging Results: positive: Final report reviewed, Read independently
== END 2019-04-13 21:19 | disposition short-term general hospital (02) ==
LOC: ED 16:12
DX: K80.62 Calculus of gallbladder and bile duct with acute cholecystitis without obstruction (principal); N64.4 Mastodynia
CPT/HCPCS: 36415; 76642; 76700; 77066; 80053; 81001; 81025; 83690; 85025; 96365; 96375; 96376; 99284; 99285; J1170; 81003; 87086

== ENCOUNTER 2019-04-13 21:20 | Outpatient (CLI) | payer MEDICAID | END 2019-04-13 21:21 | disposition short-term general hospital (02) | LOC: EMS 21:20 | PROVIDERS: ATTEND Surgery | DX: R10.12 Left upper quadrant pain (principal) | CPT/HCPCS: A0425; A0426; A0999 ==

== ENCOUNTER 2019-05-16 08:16 | Outpatient (CLI) | payer MEDICAID ==
[2019-05-16 13:27] LABS: BILIRUBIN,TOTAL 0.5 mg/dL (0.2-1.0); CALCIUM 8.8 mg/dL (8.5-10.3); CREATININE 0.7 mg/dL (0.4-1.0)
[2019-05-16 13:28] LABS: ALBUMIN 3.6 g/dL (3.2-5.5); TOTAL PROTEIN 7.2 g/dL (6.7-8.2)
== END 2019-05-16 23:59 | disposition home or self-care (01) ==
LOC: LAB.WCP 08:16
PROVIDERS: ATTEND Internal Medicine Gastroenterology
DX: K80.20 Calculus of gallbladder without cholecystitis without obstruction (principal)
CPT/HCPCS: 36415; 80053

== ENCOUNTER 2019-05-21 11:31 | Day surgery (SDC) | payer MEDICAID ==
[2019-05-21] MEDS ORDERED: LACTATED RINGERS 1,000 ML IV ONE ×2 (11:35→15:51)
--- NOTE | 2019-05-21 11:51 | ANESTHESIA ---
Pre-Anesthesia VS, & Labs - Diagnosis cholelithiasis - Procedure laparoscopic cholecystectomy Vital Signs: Temp Pulse Resp BP Pulse Ox 36.3 C L 68 12 103/72 99 05/21/19 11:35 05/21/19 11:35 05/21/19 11:35 05/21/19 11:35 05/21/19 11:35 Height 5 ft 7 in Weight (kg) 78.8 kg Body Mass Index 28.3 - NPO >8 hours - Is Patient ?: No Home Medications and Allergies Dicyclomine [Bentyl] 10 mg PO QID 04/13/19 Allergies/Adverse Reactions: Allergies Allergy/AdvReac Type Severity Reaction Status Date / Time No Known Drug Allergies Allergy Verified 02/12/15 06:16 Anes History & Medical History - Anesthetic History Family history of Anesthesia Complications: Denies Family history of Malignant Hyperthermia: Denies - Medical History Cardiovascular: reports: None Pulmonary: reports: None Gastrointestinal: reports: GI bleed, Cholelithiasis Urinary: reports: None Neuro: reports: None Musculoskeletal: reports: None Endocrine/Autoimmune: reports: None Blood Disorders: reports: None Skin: reports: None Smoking Status: Never smoker - Surgical History Gynecologic: section Exam General: Alert, Oriented x3, Cooperative, No acute distress Dental: WNL Mouth Openin Fingerbreadth Neck Mobility: Normal Mallampati classification: II Thyromental Distance: 4-6 cm Respiratory: Lungs clear, Normal breath sounds, No respiratory distress, No accessory muscle use Cardiovascular: Regular rate, Normal S1, Normal S2, No murmurs Plan Anesthesia Type: General Consent for Procedure(s) Verified and Reviewed: Yes Code Status: Attempt Resuscitation ASA classification: 1-Healthy patient Is this case an emergency?: No
[2019-05-21] MEDS ORDERED: CEFAZOLIN SODIUM IN 0.9 % NACL 2 GM/100 ML BAG IV ONE (12:14)
[2019-05-21] MEDS ORDERED: BUPIVACAINE 0.5%-EPI 1:200000 PF 30 ML VIAL ONE (12:14)
[2019-05-21 12:27] LABS: HCG UR QUAL NEGATIVE
[2019-05-21] MEDS ORDERED: BUPIVACAINE 0.5%-EPI 1:200000 PF 30 ML VIAL SUBQ ONE ×2 (14:22→14:44)
[2019-05-21] MEDS ORDERED: IBUPROFEN 600 MG TABLET PO PRN (14:54)
[2019-05-21] MEDS ORDERED: ONDANSETRON 4 MG/2 ML VIAL IVP PRN (14:54)
[2019-05-21] MEDS ORDERED: oxyCODONE 5 MG TABLET PO PRN (14:54)
[2019-05-21] MEDS: HYDROmorphone 1 MG/ML CARPUJECT ONE ×2 (15:26→15:48)
--- NOTE | 2019-05-21 15:33 | OPERATIVE REPORT ---
DATE OF SERVICE: 05/21/2019 Physician: Deniz Mae MD PREOPERATIVE DIAGNOSIS: Symptomatic cholelithiasis. POSTOPERATIVE DIAGNOSIS: Symptomatic cholelithiasis. PROCEDURE PERFORMED: Laparoscopic cholecystectomy. ANESTHESIA: General endotracheal by Dr. Lemos. SURGEON: Deniz Mae MD ESTIMATED BLOOD LOSS: 5 mL COMPLICATIONS: None. FINDINGS: Laparoscopy revealed a normal-appearing liver, stomach, and visualized portion of small an d large bowel. There were adhesions present in the right lower quadrant to the anterior abdominal wa ll from the omentum, likely from prior surgery. The gallbladder had a chronically thickened wall. I t was white in color. Cystic duct and common duct were of normal caliber. Following resection, the gallbladder was seen to contain 2 large, 1.5 to 2 cm barrel-shaped, mixed cholesterol stones. INDICATIONS: Patient is a 38-year-old woman with a recent episode of severe upper abdominal pain ass ociated with abnormal liver function tests, which, upon evaluation was thought to represent possibly acute cholecystitis with choledocholithiasis. Evaluation with MRCP subsequently revealed no evidence of acute cholecystitis or choledocholithiasis, but evidence of cholelithiasis, and she was subsequen tly advised to undergo laparoscopic cholecystectomy for definitive surgical treatment. TECHNIQUE: After informed consent, patient was taken to the operating room, where she was placed und er general endotracheal anesthesia. Preoperative preparation included an application of sequential c long term compression boots and administration of 2 grams cefazolin intravenously within an hour of the inc ision. Her abdomen was prepared with ChloraPrep solution and draped in the usual sterile fashion. T ransverse incision was made along the inferior edge of the umbilicus and carried down through the lay ers of the abdominal wall until the peritoneum was identified and entered sharply. A 10 mm Arturo ca nnula was inserted. Pneumoperitoneum was achieved with carbon dioxide. A 10 mm, 30-degree Wylie t elescope was inserted. Laparoscopy was carried out with findings noted above. Three additional 5 mm ports were placed in the right upper quadrant. Instruments were passed. The gallbladder was graspe d and retracted in a cephalad and lateral direction, exposing the cystic triangle of Calot, which was carefully dissected using hook electrode and electrocautery, isolating the cystic duct, cystic arter y and the critical view of safety, following which the cystic duct was triply clipped distally, doubl y proximally and divided between. The artery doubly clipped proximally and distally, adjacent to the gallbladder and divided between. The gallbladder was excised from the liver bed using electrocauter y for dissection and hemostasis. It was detached intact, placed in an organ retrieval bag, extracted , opened on a side table with findings noted above, and then tissue sent for pathologic evaluation. After hemostasis had been ensured, instruments and cannulas were removed under direct vision. Pneumo peritoneum was allowed to escape and the incisions were closed in layers using continuous 0 Vicryl, r eapproximated in the midline fascia at the umbilicus, followed by 4-0 Monocryl subcuticular skin clos ure at all the port sites, followed by Dermabond; 20 mL of 0.5% Marcaine with epinephrine was infiltr ated into the incision to assist in postoperative analgesia. Anesthesia was terminated and the patie nt was transferred to the recovery room in satisfactory condition. Sponge and needle counts correct x2. No drains were used. cc: Meg Henry PA-C TD: 05/21/2019 15:04
[2019-05-21] MEDS ORDERED: ONDANSETRON 4 MG/2 ML VIAL ONE (15:44)
[2019-05-21] MEDS ORDERED: PROMETHAZINE 25 MG/1 ML VIAL ONE (16:24)
[2019-05-21] MEDS: ACETAMINOPHEN 325 MG TABLET PO PRN (20:30)
[2019-05-22] MEDS ORDERED: SODIUM CHLORIDE FLUSH 0.9% 10 ML SYRINGE ONE (00:46)
[2019-05-22] MEDS: ACETAMINOPHEN 325 MG TABLET PO PRN ×2 (03:23→09:24)
[2019-05-22 08:25] VITALS: BP 104/68
== END 2019-05-22 11:05 | disposition home or self-care (01) ==
LOC: SDS 11:31 → MS2 17:41 → SDS 05-22 11:05
PROVIDERS: ATTEND Internal Medicine Gastroenterology
PROC: 0FT44ZZ Resection of Gallbladder, Percutaneous Endoscopic Approach (ICD-10-PCS; principal; 2019-05-21 12:45)
DX: K80.10 Calculus of gallbladder with chronic cholecystitis without obstruction (principal); Z87.19 Personal history of other diseases of the digestive system
CPT/HCPCS: 47562; 81025; A9270; J0690; J1170; J7120

== ENCOUNTER 2019-08-09 09:51 | Outpatient (CLI) | payer MEDICAID ==
[2019-08-09 11:54] LABS: BASOPHILS % (AUTO) 0.5 %; EOSINOPHILS % (AUTO) 0.5 %; HGB - HEMOGLOBIN 12.1 g/dL (12.0-16.0); LYMPHOCYTES # (AUTO) 1.9 10^3/uL (1.5-3.5); LYMPHOCYTES % (AUTO) 30.3 %; MEAN CORPUSCULAR HEMOGLOBIN 29.4 pg (27.0-31.0); MEAN CORPUSCULAR HGB CONC 30.6 g/dL (32.0-36.0); MEAN CORPUSCULAR VOLUME 96.4 fL (81.0-99.0); MEAN PLATELET VOLUME 11.5 fL (7.9-10.8); MONOCYTES # (AUTO) 0.5 10^3/uL (0.0-1.0); MONOCYTES % (AUTO) 7.3 %; NEUTROPHILS # (AUTO) 3.9 10^3/uL (1.5-6.6); NEUTROPHILS % (AUTO) 61.1 %; PLT - PLATELET COUNT 293 10^3/uL (130-450); RED BLOOD COUNT 4.11 10^6/uL (4.20-5.40); RED CELL DISTRIBUTION WIDTH 13.9 % (12.0-15.0); WHITE BLOOD COUNT 6.3 x10^3/uL (4.8-10.8)
[2019-08-09 12:14] LABS: ALBUMIN/GLOBULIN RATIO 1.1 (1.0-2.2); BILIRUBIN,TOTAL 0.7 mg/dL (0.2-1.0); CALCIUM 9.1 mg/dL (8.5-10.3); CREATININE 0.7 mg/dL (0.4-1.0); TOTAL PROTEIN 7.7 g/dL (6.7-8.2)
[2019-08-09 13:00] LABS: HCG,QUALITATIVE BLOOD NEGATIVE
== END 2019-08-09 09:52 | disposition home or self-care (01) ==
LOC: LAB.WCP 09:51
PROVIDERS: ATTEND Family Medicine
DX: K52.9 Noninfective gastroenteritis and colitis, unspecified (principal)
CPT/HCPCS: 36415; 80053; 84703; 85025

== ENCOUNTER 2021-02-17 09:19 | Outpatient (CLI) | payer MEDICAID, OTHER ==
[2021-02-17 11:42] LABS: BASOPHILS % (AUTO) 0.6 %; EOSINOPHILS % (AUTO) 0.6 %; HCT - HEMATOCRIT 34.2 % (37.0-47.0); HGB - HEMOGLOBIN 10.7 g/dL (12.0-16.0); LYMPHOCYTES # (AUTO) 1.8 10^3/uL (1.5-3.5); LYMPHOCYTES % (AUTO) 33.1 %; MEAN CORPUSCULAR HEMOGLOBIN 29.1 pg (27.0-31.0); MEAN CORPUSCULAR HGB CONC 31.3 g/dL (32.0-36.0); MEAN CORPUSCULAR VOLUME 92.9 fL (81.0-99.0); MEAN PLATELET VOLUME 11.1 fL (7.9-10.8); MONOCYTES # (AUTO) 0.4 10^3/uL (0.0-1.0); MONOCYTES % (AUTO) 7.4 %; NEUTROPHILS # (AUTO) 3.2 10^3/uL (1.5-6.6); NEUTROPHILS % (AUTO) 58.1 %; PLT - PLATELET COUNT 317 10^3/uL (130-450); RED BLOOD COUNT 3.68 10^6/uL (4.20-5.40); RED CELL DISTRIBUTION WIDTH 14.5 % (12.0-15.0); WHITE BLOOD COUNT 5.4 x10^3/uL (4.8-10.8)
[2021-02-17 12:02] LABS: ALBUMIN 4.1 g/dL (3.2-5.5); ALBUMIN/GLOBULIN RATIO 1.2 (1.0-2.2); ALKALINE PHOSPHATASE 86 IU/L (42-121); ALT ALANINE AMINOTRANSFERASE 15 IU/L (10-60); AST ASPARTATE AMINOTRANSFERASE 20 IU/L (10-42); BILIRUBIN,TOTAL 0.8 mg/dL (0.2-1.0); BUN - BLOOD UREA NITROGEN 8 mg/dL (6-20); CALCIUM 9.3 mg/dL (8.5-10.3); CARBON DIOXIDE - CO2 25 mmol/L (21-32); CHLORIDE 105 mmol/L (101-111); CHOL/HDL RATIO 3.2 (<4.4); CHOLESTEROL 195 mg/dL; CREATININE 0.7 mg/dL (0.4-1.0); GFR - MDRD 94 (>89); GLUCOSE 90 mg/dL (70-100); HDL CHOLESTEROL 61 mg/dL; LDL CHOLESTEROL,CALCULATED 117 mg/dL; LDL/HDL RATIO 1.9 (<4.4); POTASSIUM 3.9 mmol/L (3.5-5.0); SODIUM 140 mmol/L (135-145); TOTAL PROTEIN 7.6 g/dL (6.7-8.2); TRIGLYCERIDES 83 mg/dL; VLDL CHOLESTEROL 17 mg/dL
[2021-02-17 12:07] LABS: THYROID STIMULATING HORMONE 1.73 uIU/mL (0.34-5.60)
== END 2021-02-17 23:59 | disposition home or self-care (01) ==
LOC: LAB.WCP 09:19
PROVIDERS: ATTEND Nurse Practitioner Family
DX: R53.83 Other fatigue (principal); R68.89 Other general symptoms and signs; Z83.3 Family history of diabetes mellitus; E55.9 Vitamin D deficiency, unspecified
CPT/HCPCS: 36415; 80053; 80061; 82306; 83721; 84443; 85025

== ENCOUNTER 2021-02-19 09:45 | Outpatient (CLI) | payer OTHER ==
[2021-02-19 13:10] LABS: FERRITIN 6.1 ng/mL (11.0-306.8)
[2021-02-19 13:14] LABS: % IRON SATURATION 7 % (20-50); FOLATE 17.77 ng/mL (5.90 - >24.8); IRON 31 ug/dL (28-170); TOTAL IRON BINDING CAPACITY 445 ug/dL (250-450); TRANSFERRIN 318 mg/dL (192-382)
== END 2021-02-19 23:59 | disposition home or self-care (01) ==
LOC: LAB.WCP 09:45
PROVIDERS: ATTEND Nurse Practitioner Family
DX: D64.9 Anemia, unspecified (principal)
CPT/HCPCS: 36415; 82607; 82728; 82746; 83540; 84466

== ENCOUNTER 2021-07-10 10:28 | Outpatient (CLI) | payer OTHER ==
[2021-07-10 18:39] LABS: BASOPHILS % (AUTO) 0.5 %; EOSINOPHILS % (AUTO) 0.3 %; HCT - HEMATOCRIT 36.9 % (37.0-47.0); LYMPHOCYTES # (AUTO) 1.5 10^3/uL (1.5-3.5); LYMPHOCYTES % (AUTO) 24.3 %; MEAN CORPUSCULAR HEMOGLOBIN 28.1 pg (27.0-31.0); MEAN CORPUSCULAR HGB CONC 29.8 g/dL (32.0-36.0); MEAN CORPUSCULAR VOLUME 94.1 fL (81.0-99.0); MEAN PLATELET VOLUME 11.5 fL (7.9-10.8); MONOCYTES # (AUTO) 0.5 10^3/uL (0.0-1.0); MONOCYTES % (AUTO) 7.1 %; NEUTROPHILS # (AUTO) 4.3 10^3/uL (1.5-6.6); NEUTROPHILS % (AUTO) 67.6 %; PLT - PLATELET COUNT 301 10^3/uL (130-450); RED BLOOD COUNT 3.92 10^6/uL (4.20-5.40); RED CELL DISTRIBUTION WIDTH 14.9 % (12.0-15.0); WHITE BLOOD COUNT 6.3 x10^3/uL (4.8-10.8)
[2021-07-10 20:25] LABS: % IRON SATURATION 9 % (20-50); IRON 43 ug/dL (28-170); TOTAL IRON BINDING CAPACITY 468 ug/dL (250-450); TRANSFERRIN 334 mg/dL (192-382)
== END 2021-07-10 23:59 | disposition home or self-care (01) ==
LOC: LAB.WCP 10:28
PROVIDERS: ATTEND Physician Assistant Medical
DX: D50.9 Iron deficiency anemia, unspecified (principal)
CPT/HCPCS: 36415; 82728; 83540; 84466; 85025

== ENCOUNTER 2023-01-29 09:17 | Outpatient (CLI) | payer OTHER ==
[2023-01-29 19:17] LABS: BASOPHILS % (AUTO) 0.4 %; EOSINOPHILS % (AUTO) 0.6 %; HCT - HEMATOCRIT 38.3 % (37.0-47.0); HGB - HEMOGLOBIN 11.5 g/dL (12.0-16.0); LYMPHOCYTES % (AUTO) 28.4 %; MEAN CORPUSCULAR HEMOGLOBIN 27.4 pg (27.0-31.0); MEAN CORPUSCULAR VOLUME 91.2 fL (81.0-99.0); MEAN PLATELET VOLUME 11.7 fL (7.9-10.8); MONOCYTES # (AUTO) 0.5 10^3/uL (0.0-1.0); MONOCYTES % (AUTO) 6.8 %; NEUTROPHILS # (AUTO) 4.5 10^3/uL (1.5-6.6); NEUTROPHILS % (AUTO) 63.7 %; PLT - PLATELET COUNT 304 10^3/uL (130-450); RED CELL DISTRIBUTION WIDTH 15.6 % (12.0-15.0); WHITE BLOOD COUNT 7.1 x10^3/uL (4.8-10.8)
[2023-01-29 19:44] LABS: ALKALINE PHOSPHATASE 76 IU/L (42-121); ALT ALANINE AMINOTRANSFERASE 16 IU/L (10-60); AST ASPARTATE AMINOTRANSFERASE 18 IU/L (10-42); BILIRUBIN,TOTAL 0.4 mg/dL (0.2-1.0); BUN - BLOOD UREA NITROGEN 14 mg/dL (6-20); CALCIUM 9.2 mg/dL (8.5-10.3); CARBON DIOXIDE - CO2 26 mmol/L (21-32); CHLORIDE 106 mmol/L (101-111); CHOL/HDL RATIO 2.7 (<4.4); CHOLESTEROL 178 mg/dL; CREATININE 0.7 mg/dL (0.4-1.0); GFR - MDRD 93 (>89); GLUCOSE 94 mg/dL (70-100); HDL CHOLESTEROL 66 mg/dL; LDL CHOLESTEROL,CALCULATED 97 mg/dL; LDL/HDL RATIO 1.5 (<4.4); POTASSIUM 3.9 mmol/L (3.5-5.0); SODIUM 138 mmol/L (135-145); TRIGLYCERIDES 74 mg/dL; VLDL CHOLESTEROL 15 mg/dL
[2023-01-29 19:52] LABS: THYROID STIMULATING HORMONE 2.91 uIU/mL (0.34-5.60)
[2023-01-29 20:19] LABS: FOLLICLE STIMULATING HORMONE 11.93 mIU/mL
== END 2023-01-29 09:18 | disposition home or self-care (01) ==
LOC: LAB.N 09:17
PROVIDERS: ATTEND Physician Assistant Medical
DX: Z00.00 Encounter for general adult medical examination without abnormal findings (principal); N91.2 Amenorrhea, unspecified
CPT/HCPCS: 36415; 80053; 80061; 83001; 83721; 84443; 84702; 85025

== ENCOUNTER 2024-03-03 09:22 | Outpatient (CLI) | payer OTHER ==
[2024-03-03 18:47] LABS: BASOPHILS % (AUTO) 0.3 %; EOSINOPHILS % (AUTO) 0.4 %; HCT - HEMATOCRIT 37.1 % (37.0-47.0); HGB - HEMOGLOBIN 10.7 g/dL (12.0-16.0); LYMPHOCYTES # (AUTO) 2.3 10^3/uL (1.5-3.5); MEAN CORPUSCULAR HEMOGLOBIN 27.1 pg (27.0-31.0); MEAN CORPUSCULAR HGB CONC 28.8 g/dL (32.0-36.0); MEAN CORPUSCULAR VOLUME 93.9 fL (81.0-99.0); MEAN PLATELET VOLUME 10.8 fL (7.9-10.8); MONOCYTES # (AUTO) 0.6 10^3/uL (0.0-1.0); MONOCYTES % (AUTO) 8.3 %; NEUTROPHILS % (AUTO) 57.7 %; PLT - PLATELET COUNT 434 10^3/uL (130-450); RED BLOOD COUNT 3.95 10^6/uL (4.20-5.40); RED CELL DISTRIBUTION WIDTH 15.6 % (12.0-15.0)
[2024-03-03 19:00] LABS: SLIDE REVIEW? Indicated
[2024-03-03 19:16] LABS: ALBUMIN/GLOBULIN RATIO 1.4 (1.0-2.2); ALKALINE PHOSPHATASE 75 IU/L (42-121); ALT ALANINE AMINOTRANSFERASE 15 IU/L (10-60); AST ASPARTATE AMINOTRANSFERASE 13 IU/L (10-42); BILIRUBIN,TOTAL 0.4 mg/dL (0.2-1.0); BUN - BLOOD UREA NITROGEN 11 mg/dL (6-20); CALCIUM 9.6 mg/dL (8.5-10.3); CARBON DIOXIDE - CO2 27 mmol/L (21-32); CHLORIDE 105 mmol/L (101-111); CHOL/HDL RATIO 2.9 (<4.4); CHOLESTEROL 164 mg/dL; CREATININE 0.7 mg/dL (0.6-1.3); GFR - MDRD 92 (>89); GLUCOSE 78 mg/dL (74-104); HDL CHOLESTEROL 56 mg/dL; LDL CHOLESTEROL,CALCULATED 94 mg/dL; LDL/HDL RATIO 1.7 (<4.4); SODIUM 138 mmol/L (135-145); TOTAL PROTEIN 6.9 g/dL (6.4-8.9); TRIGLYCERIDES 70 mg/dL (48-352); VLDL CHOLESTEROL 14 mg/dL
[2024-03-03 19:25] LABS: THYROID STIMULATING HORMONE 2.49 uIU/mL (0.34-5.60)
[2024-03-03 21:07] LABS: PLATELET MORPHOLOGY NORMAL APPEARANCE (NORMAL); RBC MORPHOLOGY (MULTIPLE) 1+ HYPOCHROMASIA (NORMAL)
[2024-03-03 21:08] LABS: PLATELET ESTIMATE, MANUAL NORMAL (130-450,000) (NORMAL)
== END 2024-03-03 09:23 | disposition home or self-care (01) ==
LOC: LAB.N 09:22
PROVIDERS: ATTEND Physician Assistant Medical
DX: Z00.00 Encounter for general adult medical examination without abnormal findings (principal)
CPT/HCPCS: 36415; 80053; 80061; 83721; 84443; 85025

== ENCOUNTER 2024-06-08 08:00 | Outpatient (CLI) | payer OTHER ==
[2024-06-08 20:16] LABS: FECAL OCCULT BLOOD (FIT) POSITIVE (NEGATIVE)
== END 2024-06-08 23:59 | disposition home or self-care (01) ==
LOC: LAB.N 08:00
PROVIDERS: ATTEND Physician Assistant Medical
DX: D50.9 Iron deficiency anemia, unspecified (principal)
CPT/HCPCS: 82274

== ENCOUNTER 2024-07-09 07:04 | Outpatient (CLI) | payer OTHER ==
[2024-07-09 13:12] LABS: FERRITIN 5.6 ng/mL (11.0-306.8)
== END 2024-07-09 07:05 | disposition home or self-care (01) ==
LOC: LAB.N 07:04
PROVIDERS: ATTEND Physician Assistant Medical
DX: D50.9 Iron deficiency anemia, unspecified (principal)
CPT/HCPCS: 36415; 82607; 82728; 82746; 83540; 84466; 85025